=== PATIENT | male | born 1980 | race Caucasian/White ===

== ENCOUNTER 2018-05-31 22:19 | Emergency (ER) | payer OTHER, SELFPAY ==
[2018-05-31] MEDS ORDERED: Adacel (T-DAP) 0.5 ML VIAL ONE (22:42)
[2018-05-31] MEDS ORDERED: Sulfameth/Trimethoprim DS 800-160mg TAB ONE (22:42)
[2018-05-31] MEDS ORDERED: HYDROcodone/Acetaminophen 10/325 mg Tablet ONE (22:42)
[2018-05-31] MEDS ORDERED: Bacitracin Zinc 1 Packet ONE (22:42)
== END 2018-05-31 22:57 | disposition home or self-care (01) ==
LOC: BURERS 22:19
DX: L02.413 Cutaneous abscess of right upper limb (principal); L03.113 Cellulitis of right upper limb; F17.210 Nicotine dependence, cigarettes, uncomplicated
CPT/HCPCS: 87070; 87077; 87186; 87205; 90471; 90715

== ENCOUNTER 2018-06-05 23:07 | Emergency (ER) | payer SELFPAY | END 2018-06-05 23:50 | disposition home or self-care (01) | LOC: BURERS 23:07 | DX: B42.9 Sporotrichosis, unspecified (principal); F17.210 Nicotine dependence, cigarettes, uncomplicated; Z79.899 Other long term (current) drug therapy | CPT/HCPCS: 10061 ==

== ENCOUNTER → 2018-11-20 | Emergency (ER) | payer SELFPAY ==
[~2018-11-20] MED LIST: Cyclobenzaprine 10 MG TAB ONE; Ketorolac Tromethamine 30 MG/ML VIAL ONE
== END ==
LOC: BURERS 02:31
DX: M25.512 Pain in left shoulder (principal); F17.210 Nicotine dependence, cigarettes, uncomplicated
CPT/HCPCS: 96372; J1885

== ENCOUNTER 2021-07-09 10:31 | Emergency (ER) | payer SELFPAY ==
[2021-07-09] MEDS ORDERED: traMADol HCl 50 MG TAB ONE (11:15)
[2021-07-09] MEDS ORDERED: Ibuprofen 800 MG TAB ONE (11:15)
[2021-07-09] MEDS ORDERED: Dexamethasone 4 mg/ml Vial ONE (11:54)
== END 2021-07-09 12:12 | disposition home or self-care (01) ==
LOC: BURERS 10:31
DX: M79.642 Pain in left hand (principal); F17.210 Nicotine dependence, cigarettes, uncomplicated
CPT/HCPCS: 84550; J1100

== ENCOUNTER 2021-07-11 04:29 | Emergency (ER) | payer SELFPAY ==
[2021-07-11] MEDS ORDERED: Ketorolac Tromethamine 30 MG/ML VIAL ONE (05:40)
[2021-07-11 05:52] LABS: #Basophils 0.1 thou/uL (0.0-0.2); #Eosinphils 0.1 thou/uL (0.0-0.7); #Lymphocytes 1.8 thou/uL (1.20-3.40); %Basophils 0.8 % (0.0-1.0); %Eosinophils 0.9 % (0.0-10.0); %Lymphocytes 13.7 % (21.0-51.0); %Monocytes 7.9 % (0.0-10.0); %Neutrophils 76.7 % (42.0-75.0); Mean Corpuscular HGB CONC 35.7 g/dL (32.0-36.0); Mean Corpuscular Volume 86.8 fL (78.0-98.0); Mean Platelet Volume 6.3 fL (7.4-10.4); Platelet Count 318 thou/uL (130-400); RBC Distribution Width 11.4 % (11.5-14.5); Red Blood Cell (RBC) Count 4.53 mill/uL (4.70-6.10)
[2021-07-11 06:04] LABS: ALT (SGPT) 18 U/L (8-55); AST (SGOT) 13 U/L (5-34); Albumin 3.9 g/dL (3.5-5.0); Alkaline Phosphatase 78 U/L (40-110); Anion Gap 14 mmol/L (10-20); BUN (Urea Nitrogen) 12 mg/dL (8.9-20.6); Bilirubin, Total 0.3 mg/dL (0.2-1.2); Calc. Creatinine Clearance 0 mL/min (70-130); Calcium 8.9 mg/dL (7.8-10.44); Carbon Dioxide 24 mmol/L (22-29); Chloride 104 mmol/L (98-107); Globulin 3.7 g/dL (2.4-3.5); Glucose 223 mg/dL (70-105); Potassium 3.7 mmol/L (3.5-5.1); Protein, Total 7.6 g/dL (6.0-8.3); Sodium 138 mmol/L (136-145)
[2021-07-11] MEDS ORDERED: Fentanyl 100 MCG/2 ML VIAL ONE (06:21)
[2021-07-11] MEDS ORDERED: TETANUS, DIPHTHERIA TOX,ADULT (TDVAX) 0.5 ML VIAL IM ONE (08:38)
[2021-07-11 08:58] LABS: SARS-CoV-2 NAA Rapid Test DETECTED (NotDetected)
[2021-07-11] MEDS ORDERED: Boostrix 0.5 ML (Tdap) VIAL ONE (14:18)
== END 2021-07-11 09:45 | disposition short-term general hospital (02) ==
LOC: BURERS 04:29
DX: U07.1 COVID-19 (principal); M65.842 Other synovitis and tenosynovitis, left hand; E11.9 Type 2 diabetes mellitus without complications; F17.210 Nicotine dependence, cigarettes, uncomplicated
CPT/HCPCS: 80053; 85025; 85652; 86140; 87040; 90471; 90714; 90715; 96374; 96375; J1885; J3010; U0002

== ENCOUNTER 2023-08-18 15:04 | Emergency (ER) | payer BC, OTHER ==
[~2023-08-18 15:04] MED LIST changes: -Cyclobenzaprine 10 MG TAB ONE; +Iopamidol 370 76% 100 ML VIAL ONE; -Ketorolac Tromethamine 30 MG/ML VIAL ONE
[2023-08-18] MEDS ORDERED: Morphine 4 MG/ML VIAL ONE (15:26)
[2023-08-18] MEDS ORDERED: Ondansetron PF 4 MG/2 ML Vial ONE (15:26)
[2023-08-18 15:34] LABS: #Basophils 0.1 thou/uL (0.0-0.2); #Eosinphils 0.1 thou/uL (0.0-0.7); #Lymphocytes 1.1 thou/uL (1.20-3.40); #Monocytes 0.7 thou/uL (0.11-0.59); #Neutrophils 11.7 thou/uL (1.40-6.50); %Basophils 0.5 % (0.0-1.0); %Eosinophils 0.7 % (0.0-10.0); %Lymphocytes 7.8 % (21.0-51.0); %Monocytes 4.8 % (0.0-10.0); %Neutrophils 86.1 % (42.0-75.0); Hematocrit 41.4 % (42.0-52.0); Hemoglobin 14.1 g/dL (14.0-18.0); Mean Corpuscular HGB CONC 34.1 g/dL (32.0-36.0); Mean Corpuscular Hemoglobin 29.8 pg (27.0-31.0); Mean Corpuscular Volume 87.4 fl (78.0-98.0); Mean Platelet Volume 6.2 fL (7.4-10.4); Platelet Count 281 10x3/uL (130-400); RBC Distribution Width 11.2 % (11.5-14.5); Red Blood Cell (RBC) Count 4.74 mill/uL (4.70-6.10); White Blood Cell (WBC) Count 13.5 10x3/uL (4.8-10.8)
[2023-08-18 15:38] LABS: INR-International Normal Ratio 0.9; Prothrombin Time 12.9 sec (12.0-14.7)
[2023-08-18 15:47] LABS: ALT (SGPT) 29 U/L (8-55); AST (SGOT) 14 U/L (5-34); Albumin 4.1 g/dL (3.5-5.0); Alkaline Phosphatase 109 U/L (40-110); Anion Gap 16 mmol/L (10-20); BUN (Urea Nitrogen) 14 mg/dL (8.9-20.6); Bilirubin, Total 0.5 mg/dL (0.2-1.2); Calc. Creatinine Clearance 0 mL/min (70-130); Calcium 8.5 mg/dL (7.8-10.44); Carbon Dioxide 20 mmol/L (22-29); Chloride 101 mmol/L (98-107); Estimated GFR 85; Globulin 3.9 g/dL (2.4-3.5); Potassium 4.1 mmol/L (3.5-5.1); Sodium 133 mmol/L (136-145)
[2023-08-18 15:48] LABS: Glucose 470 mg/dL (70-105)
== END 2023-08-18 16:37 | disposition home or self-care (01) ==
LOC: BURERS 15:04
DX: S32.010A Wedge compression fracture of first lumbar vertebra, initial encounter for closed fracture (principal); K40.20 Bilateral inguinal hernia, without obstruction or gangrene, not specified as recurrent; F17.210 Nicotine dependence, cigarettes, uncomplicated; W08.XXXA Fall from other furniture, initial encounter
CPT/HCPCS: 71260; 74177; 80053; 85025; 85610; 85730; 96374; 96375; J2270; J2405; Q9967